=== PATIENT | female | born 1995 | race Caucasian/White ===

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

== ENCOUNTER 2017-01-01 10:21 | Inpatient (IN) | payer BC ==
[~2017-01-01] VITALS: Ht 172.7 cm; Wt 73.6 kg
[2017-01-01] MEDS ORDERED: LACTATED RINGER'S 1000ML 1,000 ML IV PRN (10:39)
[2017-01-01] MEDS ORDERED: LACTATED RINGER'S 1000ML 500 ML IV PRN ×2 (10:39→15:02)
[2017-01-01] MEDS ORDERED: PENICILLIN G POTASSIUM IV 3 MU in DEXTROSE 5% 100ML 100 ML IV PRN (10:45)
[2017-01-01] MEDS ORDERED: OXYTOCIN 30 UNITS/500ML NSS IV PRN ×2 (10:45→17:30)
[2017-01-01] MEDS ORDERED: PENICILLIN G POTASSIUM IV 6 MU in DEXTROSE 5% 250ML 250 ML IV STA (10:48)
[2017-01-01 11:00] LABS: HEMATOCRIT 40.5 % (37-47); MEAN CELL VOLUME 88.4 fL (80-100); MEAN CORPUSCULAR HEMOGLOBIN 28.2 pg (25-34); MEAN CORPUSCULAR HGB CONC 31.9 g/dl (32-36); MEAN PLATELET VOLUME 12.1 fL (7.4-10.4); PLATELET COUNT 189 K/uL (130-400); RED BLOOD COUNT 4.58 M/uL (4.2-5.4); WHITE BLOOD COUNT 7.93 K/uL (4.8-10.8)
[2017-01-01 11:20] LABS: ALT/SGPT 13 U/L (12-78); AST/SGOT 12 U/L (15-37); BLOOD UREA NITROGEN 9 mg/dl (7-18); BUN/CREATININE RATIO 10.1 (10-20); CALCIUM 8.4 mg/dl (8.5-10.1); CARBON DIOXIDE 22 mmol/L (21-32); CHLORIDE 107 mmol/L (98-107); CREATININE 0.85 mg/dl (0.60-1.20); GLUCOSE 75 mg/dl (70-99); POTASSIUM 3.8 mmol/L (3.5-5.1); SODIUM 137 mmol/L (136-145)
[2017-01-01 11:23] LABS: ALB/GLOB RATIO 0.7 (0.9-2); ALKALINE PHOSPHATASE 134 U/L (45-117)
[2017-01-01] MEDS: LACTATED RINGER'S 1000ML 1,000 ML IV SCH ×2 (11:27→15:15)
[2017-01-01 11:38] VITALS: Ht 172.7 cm; Wt 73.6 kg
[2017-01-01] MEDS ORDERED: EpHEDrine SULFATE INJ 50 MG/ML AMP ONE (14:07)
[2017-01-01] MEDS ORDERED: BUPIVACAINE 0.25% 30 ML VIAL ONE (14:07)
[2017-01-01] MEDS ORDERED: FENTANYL 2MCG/ML ROPIV 1.25MG/ML 100ML BAG EPI ONE (14:08)
[2017-01-01] MEDS ORDERED: FENTANYL CITRATE INJ 50 MCG/1 ML 2 ML VIAL ONE (14:08)
[2017-01-01] MEDS ORDERED: NALOXONE HCL INJ 1 MG in SODIUM CHLORIDE 0.9% 1000ML 1,000 ML IV PRN ×4 (15:02)
[2017-01-01] MEDS ORDERED: NALOXONE HCL INJ 0.4 MG/1 ML VIAL/CARP IV PRN (15:15)
[2017-01-01] MEDS ORDERED: DiphenhydrAMINE HCL 50 MG/ML VIAL IV PRN (15:15)
[2017-01-01] MEDS ORDERED: EpHEDrine SULFATE INJ 50 MG/ML AMP IV PRN (15:15)
[2017-01-01] MEDS ORDERED: FENTANYL 2MCG/ML ROPIV 1.25MG/ML 100ML BAG EPI PRN (15:15)
[2017-01-01] MEDS ORDERED: NALBUPHINE HCL INJ 10 MG/ML AMP IV PRN (15:15)
[2017-01-01] MEDS ORDERED: PROMETHAZINE HCL INJ 25 MG in SODIUM CHLORIDE 0.9% 50ML 50 ML IV PRN (15:15)
[2017-01-01] MEDS ORDERED: ONDANSETRON INJ 2 MG/ML 2 ML VIAL IV PRN (15:15)
[2017-01-01] MEDS ORDERED: OXYTOCIN INJ 20 UNITS in LACTATED RINGER'S 1000ML 1,000 ML IV SCH (17:17)
--- NOTE | 2017-01-01 17:21 | Vaginal Delivery Summary ---
Vaginal Delivery Summary The patient dilated to complete and pushed to deliver a viable male Apgars 7 and 8 via over intact perineum. Mouth and nose bulb suctioned at the perineum. Shoulders and body delivered with ease. Infant vigorous and crying at . Cord clamped at 30 seconds of life. to maternal abdomen. Cord doubly clamped and cut. Placenta delivered spontaneously and intact 3 vessel cord. Hemostasis achieved with dilute Pitocin and uterine massage. Cervix and sulci intact. Small left labial laceration as well as hymenal laceration stitched with 3-0 and 4-0 Vicryl in the usual fashion for excellent hemostasis. Mother and baby stable in recovery. EBL 300 cc's.
[2017-01-01] MEDS ORDERED: DIPHTHERIA/TETANUS/PERTUSSIS 0.5 ML SYR/VIAL IM. ONE (17:30)
[2017-01-01] MEDS ORDERED: ACETAMINOPHEN 325 MG TAB PO PRN (17:30)
[2017-01-01] MEDS ORDERED: LANOLIN OINT EXT PRN ×2 (17:30)
[2017-01-01] MEDS ORDERED: ACETAMINOPHEN/CODEINE 300/30MG TAB PO PRN ×2 (17:30)
[2017-01-01] MEDS ORDERED: SUPERCREAM 0.870 % 15GM JAR EXT PRN (17:30)
[2017-01-01] MEDS ORDERED: HYDROCORTISONE ACETATE 25 MG SUPP PR PRN (17:30)
[2017-01-01] MEDS ORDERED: BENZOCAINE 20% AER SPR 82.5 GM CAN EXT PRN (17:30)
--- NOTE | 2017-01-01 18:17 | Anesthesia Procedure Note ---
Anesthesia Epidural Removal Nt Date & Time Jan 01, 2017 at 18:17 Vital Signs Pain Intensity: 6.0 Notes Mental Status: alert / awake / arousable, participated in evaluation Nausea / Vomiting: adequately controlled Pain: adequately controlled Airway Patency, RR, SpO2: stable & adequate BP & HR: stable & adequate Hydration State: stable & adequate Neuraxial Anesthesia: was administered Anesthetic Complications: no major complications apparent, pt satisfied with anesthetic care Epidural: removed without complications, with tip intact
[2017-01-01] MEDS: DOCUSATE SODIUM 100 MG CAP PO SCH (20:36)
[2017-01-01] MEDS: IBUPROFEN 600 MG TAB PO PRN (20:37)
[2017-01-01 21:00] VITALS: BP 139/90; PULSE 83; TEMP 36.9
[2017-01-02 00:30] VITALS: BP 146/95; PULSE 60; TEMP 36.6
[2017-01-02] MEDS: IBUPROFEN 600 MG TAB PO PRN ×3 (00:58→20:14)
[2017-01-02 04:50] VITALS: BP 142/89; PULSE 62; TEMP 36.5
--- NOTE | 2017-01-02 07:05 | Progress Note ---
Subjective Jan 02, 2017. Subjective conversation w/ patient, physical exam Ambulation: ambulating normally Voiding: no voiding problems Diet Tolerance: Regular Diet Lochia: Small Pain: no pain issues. Comment: pt still planning adopting baby out. she is not sure if she wants to go home today and will let us know Objective Vital Signs Date Time Temp Pulse Resp B/P (MAP) Pulse Ox O2 Delivery O2 Flow Rate FiO2 01/02/17 04:50 36.5 62 17 142/89 (106) Room Air 01/02/17 00:30 36.6 60 18 146/95 (112) Room Air 01/02/17 00:30 Room Air 01/01/17 21:00 Room Air 01/01/17 21:00 36.9 83 20 139/90 (106) Room Air Physical Exam General Appearance: WELL-APPEARING, WD/WN, NO APPARENT DISTRESS Respiratory/Chest: lungs clear Cardiovascular: regular rate, rhythm Abdomen: non tender, soft Fundus: Firm, Relation to Umbilicus (2 down) Extremities: non-tender Laboratory Results Last 24 Hours Test 01/01/17 10:48 White Blood Count 7.93 K/uL Red Blood Count 4.58 M/uL Hemoglobin 12.9 g/dL Hematocrit 40.5 % Mean Corpuscular Volume 88.4 fL Mean Corpuscular Hemoglobin 28.2 pg Mean Corpuscular Hemoglobin Concent 31.9 g/dl RDW Standard Deviation 42.3 fL RDW Coefficient of Variation 13.1 % Platelet Count 189 K/uL Mean Platelet Volume 12.1 fL Sodium Level 137 mmol/L Potassium Level 3.8 mmol/L Chloride Level 107 mmol/L Carbon Dioxide Level 22 mmol/L Anion Gap 8.0 mmol/L Blood Urea Nitrogen 9 mg/dl Creatinine 0.85 mg/dl Estimated GFR () 115.1 Estimated GFR (Non- 99.3 BUN/Creatinine Ratio 10.1 Random Glucose 75 mg/dl Calcium Level 8.4 mg/dl Total Bilirubin 0.4 mg/dl Aspartate Amino Transf (AST/SGOT) 12 U/L Alanine Aminotransferase (ALT/SGPT) 13 U/L Alkaline Phosphatase 134 U/L Total Protein 6.4 gm/dl Albumin 2.7 gm/dl Globulin 3.7 gm/dl Albumin/Globulin Ratio 0.7 Assessment and Plan Post- Day#: 1 Continue Routine Care: stable, routine care. instructions reviewed, f/u 6wks. has ocp and will start once menses returns. rhogam eval.
--- NOTE | 2017-01-02 07:08 | Discharge Instructions ---
Discharge Instructions Date of Service Jan 02, 2017. Admission Reason for Admission: Induction Discharge Discharge Diagnosis / Problem: after delivery Discharge Goals Goal(s): Routine recovery after delivery Medications Continue Dispensed Medications: supercream, dermaplast, tucks, lansinoh Activity Recommendations Activity Limitations: as noted below . Instructions / Follow-Up Instructions / Follow-Up ACTIVITY RECOMMENDATIONS: * Gradual return to full activity over the next 2-3 weeks. * No lifting - nothing heavier than baby over the next 2-3 weeks. * Do not engage in vigorous exercise, sexual activity or sports until cleared by your physician. * Do not drive or operate any motorized equipment until cleared by your physician. * You may shower/bathe daily. MEDICATIONS: For discomfort or pain, you may use Acetaminophen (Tylenol), Ibuprofen (Advil), or Naproxen (Aleve) following the package directions. For constipation you may use Colace following the package directions. BREAST CARE: If you are not breast feeding: * Wear a supportive bra 24 hours a day for one to two weeks. * Avoid stimulating your breasts and nipples as much as possible during the first few weeks after delivery. * When taking a shower, have the warm water hit your back, not breasts. * When your breasts feel full, apply ice packs. Usually three to four times a day helps ease the discomfort. * Take a mild pain medication (Tylenol / Motrin) when you are uncomfortable. If breast feeding: * Use breast milk to lubricate nipples. Lansinoh cream may be used for sore nipples. You do not need to remove cream prior to breast feeding. If using a different brand of cream, check the label for directions regarding removal of cream prior to nursing. * Wear a supportive bra. * If having problems with breasts or breast feeding, call a regulatory affairs consultant or your health care provider. EPISIOTOMY CARE: After delivery, if you have an episiotomy (stitches), the following steps will ease discomfort and aid healing. * For the first 24 hours after delivery, place ice packs next to your episiotomy to help reduce swelling. * After the first 24 hour-period, sitz baths, either portable or in the tub, are suggested. A shower with a shower arm sprayed over the episiotomy may be comforting. * Magaly care should be done after each voiding and bowel movement. Squirt warm water from a plastic bottle over the perineum (region of the body between the anus and urinary opening) and pat dry. * Use Dermoplast to ease discomfort. Shake container. [place] directly over the episiotomy. Place a Tucks on a clean sanitary pad next to your episiotomy. SPECIAL CARE INSTRUCTIONS: When you are discharged from the hospital, it is important for you to follow the instructions listed below: * During the first week at home, you should be able to care for yourself and your baby. In addition, the usual light household activities are encouraged. * Limit your activities to the way you feel. Do not try to clean the house or move furniture. Be sensible. * If you actively engage in sports and have done so up until the time of your delivery, you may resume these activities as soon as you feel able. This may take up to one month or even longer. Use good judgment. * Continue to take your vitamins for at least six weeks after the of your baby. * Your diet need not be limited unless you were on a special diet before your delivery. * You should eat foods from the four major food groups. Crash diets or fad diets are to be avoided. Eating lean meats, fresh fruits and vegetables, low-fat dairy products, high fiber foods and a regular exercise program, will help you get back to your pre- weight without putting your health at risk. * Constipation is sometimes a problem after delivery. Take a mild laxative as needed. If breast feeding, Milk of Magnesia is acceptable to use. You may use a suppository or Fleets enema if no episiotomy. * A daily shower or tub bath is suggested. Be sure to thoroughly and gently dry the perineum. * A bloody vaginal discharge will usually continue until around four weeks post . A small amount of bleeding may continue for as long as six weeks. Vaginal discharge changes from the bright red bleeding after delivery to pink then brownish and finally yellowish-pink before becoming white and disappearing. * Bleeding may increase with activity. Your first period may come in 4-8 weeks. If your bleeding like a menses returns you may start your control pill. * Enemy Swim (sex) can begin whenever both you and your partner feel comfortable and do not have any form of genital infection. It is recommended that you wait at least six weeks for internal and external healing to occur. If you have questions, please talk to your health care practitioner. A condom should be used to prevent infection and . * Foreplay, gentle intercourse and lubrication is very important the first several times to prevent pain. A water-based lubricant such as K-Y jelly or Astroglide may be used. * During your care, you had a Rubella screen done to check for the presence of rubella antibodies in your blood. If your test was negative, you will receive a Rubella vaccine prior to discharge. This vaccine may cause a fever, soreness at the injection site and flu-like symptoms. If these symptoms persist, notify your health care practitioner. is not advised for one month after a Rubella vaccine. * Verbalizes understanding of car seat law as reviewed with patient nursing. * Car Seat hand-out given and reviewed with patient by nursing. * Shaken baby information reviewed with patient by nursing. Call you doctor if: * Heavy bleeding (saturating several pads an hour) or passing clots the size of your fist. * A fever >101 degrees F (38.3 degrees C) on two occasions four hours apart and /or chills. * Unusual pain in the pelvic or vaginal areas. * "Baby Blues" lasting longer than two weeks. If you have any questions or concerns, call your health care practitioner at . FOLLOW UP VISIT: * Please call the office at to schedule a 6 week examination. It is important you keep this appointment. It is important for you to make arrangements for either yearly or twice yearly check-ups thereafter. Current Hospital Diet Patient's current hospital diet: Regular OB Diet Discharge Diet Recommended Diet: Regular Diet Pending Studies Studies pending at discharge: no Medical Emergencies . Who to Call and When: Medical Emergencies: If at any time you feel your situation is an emergency, please call 911 immediately. . Non-Emergent Contact Non-Emergency issues call your: Computer Software Engineer . . "Provider Documentation" section prepared by Jennifer Baird. . VTE Core Measure Inpt VTE Proph given/why not?: Treatment not indicated
[2017-01-02 07:30] VITALS: BP 121/82; PULSE 60; TEMP 36.5
[2017-01-02] MEDS: DOCUSATE SODIUM 100 MG CAP PO SCH ×2 (08:40→20:13)
[2017-01-02 11:10] VITALS: BP 142/97; PULSE 64; TEMP 36.4
[2017-01-02 15:40] VITALS: BP 137/90; PULSE 64; TEMP 36.5
[2017-01-03] VITALS: BP 134/93; PULSE 54; TEMP 36.5
[2017-01-03] MEDS: IBUPROFEN 600 MG TAB PO PRN (06:45)
[2017-01-03] MEDS ORDERED: MISC-696 (07:48)
--- NOTE | 2017-01-03 07:53 | OB/GYN Progress Note ---
[facility] Progress Note Date of Service Jan 03, 2017. Subjective conversation w/ patient, physical exam, chart review, lab review Ambulation: ambulating normally Voiding: no voiding problems Passing Gas: Yes Diet Tolerance: Regular Diet Lochia: Moderate Feeding Type: Breast Feeding Pain: controlled Review of Systems Respiratory: No shortness of breath Cardiac: No chest pain Abdomen: No nausea, No vomiting Female : No dysuria Objective Vital Signs Date Time Temp Pulse Resp B/P (MAP) Pulse Ox O2 Delivery O2 Flow Rate FiO2 01/03/17 00:00 Room Air 01/03/17 00:00 36.5 54 18 134/93 (107) Room Air 01/02/17 15:40 Room Air 01/02/17 15:40 36.5 64 16 137/90 (106) Room Air 01/02/17 11:10 36.4 64 16 142/97 (112) Room Air Physical Exam General Appearance: WELL-APPEARING, WD/WN, NO APPARENT DISTRESS Respiratory/Chest: lungs clear, no respiratory distress Cardiovascular: regular rate, rhythm Abdomen: normal bowel sounds Fundus: Firm, Non-Tender, Relation to Umbilicus (3 below U) Extremities: non-tender Assessment and Plan Post- Day Number: 2 Continue Routine Care: - Vital Signs reviewed and WNL. - Blood Type: O-, GBS+, Rubella Immune. Baby is Rh-, no indication for rhogam at this time. - Pt is doing well clinically. - Encourage Ambulation, Monitor and Control pain with Motrin PRN, Resume regular diet, Monitor Lochia - Encourage Breast Feeding. - Pt deciding to keep baby instead of adoption. Will follow up with doc in [place] at 6weeks. Records printed. - Pt counselled on discharge instructions CARLOS HALL PGY1 [facility] Resident Physician Supervision Note: I interviewed and examined the patient. Discussed with Dr. Hall and agree with findings and plan as documented in the note. Any exceptions or clarifications are listed here: Patient late last night decided she wants to keep the baby. Adoption agency notified and they will notify the adoptive parents. She is interested in attempting to breast feed. We will work dilligently on that today. Her plan is to w/d from [facility]. She will be going home to [place] to recover. Will print the pnr that we have and the delivery note. Script for breast pump obtained. Plan d/c late today. Documented By: Kristy Marcano Resident Tracking Resident Involvement: Resident Care Provided Care Provided: OB Delivery
[2017-01-03 08:00] VITALS: BP 141/94; PULSE 69; TEMP 36.6
[2017-01-03] MEDS ORDERED: DIPHTHERIA/TETANUS/PERTUSSIS 0.5 ML SYR/VIAL IM. ONE (08:00)
[2017-01-03] MEDS: DOCUSATE SODIUM 100 MG CAP PO SCH (08:34)
[2017-01-03 16:05] VITALS: BP 146/93; PULSE 74; TEMP 36.3; O2SAT 99
[2017-01-03 17:25] VITALS: BP_DIAS 93; PULSE 74; TEMP 36.3
== END 2017-01-03 17:25 | disposition home or self-care (01) | DRG 775 ==
LOC: C.LD 10:21 → C.OBG 21:15
PROVIDERS: ADMIT Obstetrics & Gynecology; ATTEND Obstetrics & Gynecology
PROC: 10E0XZZ Delivery of Products of Conception, External Approach (ICD-10-PCS; principal; 2017-01-01)
PROC: 3E0P7GC Introduction of Other Therapeutic Substance into Female Reproductive, Via Natural or Artificial Opening (ICD-10-PCS; 2017-01-01)
DX: O13.4 Gestational [pregnancy-induced] hypertension without significant proteinuria, complicating childbirth (principal); O70.0 First degree perineal laceration during delivery; Z37.0 Single live birth; O99.824 Streptococcus B carrier state complicating childbirth; Z3A.37 37 weeks gestation of pregnancy; O09.33 Supervision of pregnancy with insufficient antenatal care, third trimester